=== PATIENT | female | born 1985 | race American Indian/Alaskan Native ===

== ENCOUNTER 2020-02-05 13:28 | Emergency (ER) | payer OTHER ==
[2020-02-05 13:44] VITALS: BP 123/84
[2020-02-05] MEDS ORDERED: dexAMETHasone 20 MG/5 ML VIAL IM ONE (14:21)
[2020-02-05] MEDS ORDERED: KETOROLAC 60 MG/2 ML INJ IM ONE (14:21)
--- NOTE | 2020-02-05 15:38 | Emergency Department Report ---
ED Neck Pain/Injury HPI - General Chief Complaint: Neck Pain/Injury Stated Complaint: NECK/UPPER BACK PAIN Time Seen by Provider: 02/05/20 14:21 Mode of arrival: Ambulatory Limitations: No Limitations - History of Present Illness Initial Comments: Patient is a 35-year-old female presents emergency room with complaints of right sided neck pain that began this morning. She states that she believes she may have slept wrong. She states that usually her symptoms resolve after she rests for some time but the pain continued. She states that she took Aleve without any relief. She denies any fall or injury. She denies any nausea, vomiting, diarrhea, fever, numbness, weakness, bowel or bladder incontinence, shortness of breath, cough, chest pain. No past medical history. No allergies to medications. Last menstrual cycle 01/24/2020, she denies possibility of . - Related Data Previous Rx's Medication Instructions Recorded Last Taken Type Menthol/Camphor [[place] 1 applicatio TP BID #8 oint...g. 02/05/20 Unknown Rx Ointment] Naproxen [EC-Naprosyn] 500 mg PO BID PRN #14 tablet. 02/05/20 Unknown Rx Prednisone [predniSONE 10 mg 10 mg PO .TAPER #1 tab.ds.pk 02/05/20 Unknown Rx (6-Day Pack, 21 Tabs)] methOCARBAMOL [Robaxin TAB] 500 mg PO BID PRN #14 tab 02/05/20 Unknown Rx ED Review of Systems ROS: Stated complaint: NECK/UPPER BACK PAIN Other details as noted in HPI Comment: All other systems reviewed and negative ED Past Medical Hx - Past Medical History Previous Medical History?: No - Surgical History Past Surgical History?: Yes Additional Surgical History: D&C - Social History Smoking Status: Never Smoker Substance Use Type: None - Medications Home Medications: Home Medications Medication Instructions Recorded Confirmed Last Taken Type Menthol/Camphor [[place] 1 applicatio TP BID #8 oint...g. 02/05/20 Unknown Rx Ointment] Naproxen [EC-Naprosyn] 500 mg PO BID PRN #14 tablet. 02/05/20 Unknown Rx Prednisone [predniSONE 10 mg 10 mg PO .TAPER #1 tab.ds.pk 02/05/20 Unknown Rx (6-Day Pack, 21 Tabs)] methOCARBAMOL [Robaxin TAB] 500 mg PO BID PRN #14 tab 02/05/20 Unknown Rx ED Physical Exam - General Limitations: No Limitations General appearance: alert, in no apparent distress - Head Head exam: Present: atraumatic, normocephalic - Eye Eye exam: Present: normal appearance - ENT ENT exam: Present: mucous membranes moist - Neck Neck exam: Present: normal inspection, tenderness (right sided C-spine paraspinal muscular ttp, no midline C-spine ttp, no step offs, no deformities, she has discomfort with movement of the neck to the right), full ROM. Absent: meningismus ED Course Vital Signs 02/05/20 02/05/20 02/05/20 13:43 15:59 16:29 Temperature 98.4 F Pulse Rate 81 Respiratory 18 18 18 Rate Blood Pressure 123/84 O2 Sat by Pulse 100 Oximetry ED Medical Decision Making - Medical Decision Making Patient is a 35-year-old female presents emergency room with complaints of right sided neck pain that began this morning. She states that she believes she may have slept wrong. She states that usually her symptoms resolve after she rests for some time but the pain continued. She states that she took Aleve without any relief. She denies any fall or injury. She denies any nausea, vomiting, diarrhea, fever, numbness, weakness, bowel or bladder incontinence, shortness of breath, cough, chest pain. No past medical history. No allergies to medicati ons. Last menstrual cycle 01/24/2020, she denies possibility of . vitals are normal. on exam: right sided C-spine paraspinal muscular ttp, no midline C-spine ttp, no step offs, no deformities, she has discomfort with movement of the neck to the right, no focal neuro deficits. Examination appears most consistent with torticollis versus cervical muscle strain. Patient given Toradol and dexamethasone IM and her symptoms improved. She has had no trauma, she has no midline tenderness, no step-offs, no deformities, no focal neuro deficits, no meningeal signs. given prescription naproxen, prednisone, robaxin, tiger balm ointment. advised pt please use medication as prescribed. May use ice pack, heating pad, rest, Epsom salt bath. Follow-up with a primary care doctor. Follow-up with orthopedic doctor. Return to emergency room for any new or worsening symptoms. Do not drive or operate machinery while taking muscle relaxer Robaxin. Critical care attestation.: If time is entered above; I have spent that time in minutes in the direct care of this critically ill patient, excluding procedure time. ED Disposition Clinical Impression: Neck pain on right side Disposition: TO HOME OR SELFCARE Is pt being admited?: No Does the pt Need Aspirin: No Condition: Stable Instructions: Muscle Strain, [id number], Acute Torticollis, Adult, Pain Without a Known Cause Additional Instructions: Please use medication as prescribed. May use ice pack, heating pad, rest, Epsom salt bath. Follow-up with a primary care doctor. Follow-up with orthopedic doctor. Return to emergency room for any new or worsening symptoms. Do not drive or operate machinery while taking muscle relaxer Robaxin. Prescriptions: Naproxen [EC-Naprosyn] 500 mg PO BID PRN #14 tablet.dr PRN Reason: pain Prednisone [predniSONE 10 mg (6-Day Pack, 21 Tabs)] 10 mg PO .TAPER #1 tab.ds.pk methOCARBAMOL [Robaxin TAB] 500 mg PO BID PRN #14 tab PRN Reason: pain Menthol/Camphor [[place] Ointment] 1 applicatio TP BID #8 oint...g. Referrals: JESSICA BRYANT MD [Staff Physician] - 2-3 Days [facility] [Provider Group] - 2-3 Days YULIANA RENDON MD [Staff Physician] - 2-3 Days [facility] [Provider Group] - 2-3 Days Time of Disposition: 15:36 Print Language: CROATIAN
== END 2020-02-05 16:21 | disposition home or self-care (01) ==
LOC: ED 13:28
DX: M54.2 Cervicalgia (principal)
CPT/HCPCS: 96372; 99282; J1100; J1885